=== PATIENT | male | born 1970 | race African-American/Black ===

== ENCOUNTER 2019-02-14 10:19 | Emergency (ER) | payer SELFPAY ==
[~2019-02-14] VITALS: Ht 190.5 cm; Wt 192.5 kg
[2019-02-14] MEDS ORDERED: AMLODIPINE 5MG TABLET PO ONE ×2 (11:00→14:30)
[2019-02-14] MEDS ORDERED: ACYCLOVIR 400 MG TABLET PO ONE (11:15)
[2019-02-14] MEDS ORDERED: PREDNISONE 20MG TABLET PO ONE (11:15)
[2019-02-14 12:46] LABS: BASOPHILS % 0.5 % (0.0-2.0); HEMATOCRIT. 42.4 % (42.0-52.0); HEMOGLOBIN. 13.9 g/dL (14.0-18.0); LYMPHOCYTES % 25.2 % (20.0-50.0); MEAN CORPUSCULAR HEMOGLOBIN 27.4 pg (28.0-32.0); MEAN CORPUSCULAR VOLUME 83.7 fL (80.0-94.0); MEAN PLATELET VOLUME 9.7 fl (7.4-10.4); MONOCYTES % 7.4 % (2.0-8.0); NEUTROPHILS % 63.9 % (40.0-76.0); PLATELET 164 x1000/uL (130-400); RED BLOOD CELL COUNT 5.07 mill/uL (4.7-6.1); RED CELL DISTRIBUTION WIDTH 15.3 % (11.6-14.6)
[2019-02-14 12:52] LABS: CHLORIDE 100 mEq/L (98-107)
[2019-02-14 15:29] VITALS: BP 189/110
== END 2019-02-14 15:42 | disposition home or self-care (01) ==
LOC: ER 15:39
DX: G51.0 Bell's palsy (principal); I16.0 Hypertensive urgency; R73.9 Hyperglycemia, unspecified; I10 Essential (primary) hypertension; R20.0 Anesthesia of skin
CPT/HCPCS: 36415; 70450; 80053; 82962; 85025; 93005; 99284; J7512